=== PATIENT | female | born 1985 | race Caucasian/White ===

== ENCOUNTER 2020-03-19 09:41 | Day surgery (SDC) | payer OTHER ==
[2020-03-16 14:04] VITALS: BMI 35.1
[2020-03-19 10:23] LABS: Hemoglobin 13.7 g/dL (12.0-16.0); Mean Corpuscular HGB CONC 33.2 g/dL (32.0-36.0); Mean Corpuscular Hemoglobin 29.3 pg (27.0-31.0); Mean Corpuscular Volume 88.3 fL (78.0-98.0); Mean Platelet Volume 6.9 fL (7.4-10.4); Platelet Count 278 thou/uL (130-400); RBC Distribution Width 11.2 % (11.5-14.5); Red Blood Cell (RBC) Count 4.67 mill/uL (4.20-5.40); White Blood Cell (WBC) Count 6.2 thou/uL (4.8-10.8)
[2020-03-19] MEDS ORDERED: Dexamethasone 20 MG/5 ML VIAL ONE (10:24)
[2020-03-19] MEDS ORDERED: Lidocaine 1% PF 5 ML VIAL ONE (10:24)
[2020-03-19] MEDS ORDERED: PROPOFOL 200 MG/20 ML VIAL ONE (10:24)
[2020-03-19] MEDS ORDERED: Ondansetron PF 4 MG/2 ML Vial ONE (10:24)
[2020-03-19] MEDS ORDERED: Midazolam HCl 2 mg/2 ml Vial ONE (12:29)
[2020-03-19] MEDS ORDERED: Fentanyl 100 MCG/2 ML VIAL ONE (12:29)
[2020-03-19] MEDS ORDERED: Famotidine/PF 20 mg/2ml Vial ONE (12:29)
--- NOTE | 2020-03-19 19:50 | OP ---
DATE OF PROCEDURE: 03/19/2020 PREOPERATIVE DIAGNOSIS: Missed at 11 weeks. POSTOPERATIVE DIAGNOSIS: Missed at 11 weeks. PROCEDURE PERFORMED: Suction, dilation, and curettage. ANESTHESIA: General LMA. PLANT OPERATOR HELPER SURGEON: None. COMPLICATIONS: None. DRAINS: None. PATHOLOGY: Products of conception. ESTIMATED BLOOD LOSS: 30 cc. FINDINGS: A 10-week size mobile retroverted uterus with a moderate amount of products of conception on suction curetting. At the conclusion of the procedure, there was a gritty texture noted to all uterine mares and scant bleeding from the cervical os. DESCRIPTION OF PROCEDURE: The patient was taken to the operating room, where general anesthesia was obtained without difficulty. The patient was prepped and draped in a sterile fashion in a dorsal lithotomy position. A speculum was placed in the vagina. The anterior lip of the cervix was grasped with a single-tooth tenaculum. The cervix was progressively dilated with Zen dilators to a #20 [place]. A 10 mm suction curette was assembled and the suction was turned on with a maximum pressure of 55 mmHg. The suction curette was passed into the uterus with the products returning. This was done x2. Sharp curettage was taken until a gritty texture was noted in all uterine wall. The suction curette was then passed once again into the uterine fundus and brought down through the uterine cavity. The cervix was then observed and minimal bleeding was noted from the cervical os. The uterus was then massaged to enhance uterine contraction. All instruments were then removed out of the vagina. The patient tolerated the procedure well. Sponge, lap, and needle counts correct x2. The patient was taken to recovery room in stable condition. The patient received doxycycline 200 mg prior to the procedure. Job ID: [id number]
[2020-03-19] MEDS ORDERED: Doxycycline Hyclate 200 MG in Sodium Chloride 0.9% 250 ML 250 ML IVPB SCH (21:00)
== END 2020-03-19 14:45 | disposition home or self-care (01) ==
LOC: SDC 09:41
PROVIDERS: ATTEND Student in an Organized Health Care Education/Training Program
PROC: 10D18ZZ Extraction of Products of Conception, Retained, Via Natural or Artificial Opening Endoscopic (ICD-10-PCS; principal; 2020-03-19)
DX: O02.1 Missed abortion (principal); G47.419 Narcolepsy without cataplexy; Z79.899 Other long term (current) drug therapy
CPT/HCPCS: 36415; 85027; 86850; 86900; 86901; 88305; J2250; J3010; J7050; S0028

== ENCOUNTER 2023-04-03 19:00 | Outpatient (CLI) | payer BC, OTHER | END 2023-04-03 19:01 | disposition home or self-care (01) | LOC: SLEEPLAB 19:00 | PROVIDERS: ATTEND Student in an Organized Health Care Education/Training Program | DX: G47.419 Narcolepsy without cataplexy (principal); F41.9 Anxiety disorder, unspecified; R06.83 Snoring; G47.00 Insomnia, unspecified; G47.10 Hypersomnia, unspecified | CPT/HCPCS: 95810 ==